=== PATIENT | female | born 1995 | race American Indian/Alaskan Native ===

== ENCOUNTER 2018-04-05 16:37 | Emergency (ER) | payer BC, OTHER ==
[2018-04-05 16:37] VITALS: BMI 29.7
[2018-04-05 17:04] VITALS: RESP 16
[2018-04-05] MEDS ORDERED: DiphenhydrAMINE 50 mg/ml Inj IVP STA (17:07)
[2018-04-05] MEDS ORDERED: Sodium Chloride 0.9% 1,000 ML IV STA (17:12)
[2018-04-05 17:41] LABS: BASO # 0.02 K/mm3 (0.0-2.0); BASO % 0.2 % (0.0-3.0); EOS # 0.2 (0.0-0.7); EOS % 1.9 % (1.5-5.0); GRAN # 7.49 (1.4-6.5); GRAN % 80.3 % (50.0-68.0); HEMOGLOBIN 8.3 g/dL (12.0-16.0); LYMPH # 1.3 (1.2-3.4); LYMPH % 13.7 % (22.0-35.0); MEAN CELL VOLUME 78.2 fl (80.0-105.0); MEAN CORPUSCULAR HEMOGLOBIN 25.1 pg (25.0-35.0); MEAN PLATELET VOLUME 8.9 fl (7.0-11.0); MONO # 0.4 (0.1-0.6); MONO % 3.9 % (1.0-6.0); RBC 3.31 10^6/uL (3.5-6.1); WHITE BLOOD COUNT 9.3 10^3/ul (4.5-11.0)
--- NOTE | 2018-04-05 17:44 | ED PDOC ---
Arrival/HPI - General Historian: Patient, Parent (mother) - History of Present Illness Time/Duration: 24 hours Symptom Onset: Gradual Symptom Course: Worsening Quality: Pressure Severity Level: 8 Activities at Onset: Rest Context: Sitting <Curtis Bond - Last Filed: 04/05/18 18:18> <Tesha Smith - Last Filed: 04/05/18 19:45> - General Chief Complaint: Headache Time Seen by Provider: 04/05/18 16:38 - History of Present Illness Narrative History of Present Illness (Text): 04/05/18 17:20 CC: Headache HPI: Ms. Benites is a 22 year old female with no significant past medical history who presents with a severe headache. Describes the headache as sharp and pressure-like that started yesterday and has worsened since. Patient reports undergoing a recent at [facility] four days ago. Patient attempted to have a natural , but episiotomy, vacuum, and pitocin was unsuccessful and patient reports an emergency was necessary. Patient underwent two epidurals. Patient reports first caused numbness and and an inability to move her toes, so patient reports a second attempt more inferior was performed and c- section was subsequently performed. Patient was discharged with Percocet 5-325 mg q6. Patient reports no bowel movements since discharge. Although urinary habits are unchanged, patient reports some bloody discharge. Patient endorses the headache is associated with fatigue, blurry vision, and dizziness. Mother shares that sister was diagnosed with ITP and Banda Syndrome within first 6 months of , but that patient has not had any coagulopathies or signs of bleeding aside from regular menstrual periods. (Curtis Bond) Past Medical History - Provider Review Nursing Documentation Reviewed: Yes - Travel History Have you recently traveled outside [place] w/in the past 3 mons?: No - Infectious Disease Hx of Infectious Diseases: None - Tetanus Immunization Tetanus Immunization: Up to Date - Past Medical History Past Medical History: No Previous - Psychiatric Hx Substance Use: No - Surgical History Hx Section: Yes - Anesthesia Hx Anesthesia: No <Curtis Bond - Last Filed: 04/05/18 18:18> Family/Social History - Physician Review Nursing Documentation Reviewed: Yes Family/Social History: Other (ITP and Banda Syndrome in Sister) Smoking Status: Never Smoked Hx Alcohol Use: No Hx Substance Use: No <Curtis Bond - Last Filed: 04/05/18 18:18> Allergies/Home Meds <Curtis Bond - Last Filed: 04/05/18 18:18> <KarenkhushiTesha ruby - Last Filed: 04/05/18 19:45> Allergies/Adverse Reactions: Allergies No Known Allergies Allergy (Verified 04/05/18 16:53) Home Medications: Home Meds Medication Instructions Recorded Confirmed oxyCODONE/Acetaminophen [Percocet 1 tab PO PRN PRN 04/05/18 04/05/18 5/325 mg Tab] Review of Systems - Review of Systems Eyes: Normal, Vision Changes, Photophobia. absent: Eye Pain ENT: absent: Hearing Changes Respiratory: Normal Cardiovascular: Normal Gastrointestinal: Normal Genitourinary Female: Hematuria, Vaginal Discharge Musculoskeletal: Normal Neurological: Headache, Dizziness <Curtis Bond - Last Filed: 04/05/18 18:18> Physical Exam Vital Signs Reviewed: Yes Temperature: Afebrile Blood Pressure: Normal Pulse: Regular Respiratory Rate: Normal Appearance: Positive for: Well-Appearing, Non-Toxic, Uncomfortable Pain Distress: Moderate Mental Status: Positive for: Alert and Oriented X 3 Finger Stick Blood Glucose: 88 - Systems Exam Head: Present: Atraumatic, Normocephalic, Tenderness (over forehead and L [employer] ). No: Contusion, Swelling, Ecchymosis Pupils: Present: PERRL Extroacular Muscles: Present: EOMI Conjunctiva: Present: Normal Mouth: Present: Moist Mucous Membranes Neck: Present: Normal Range of Motion. No: Meningeal Signs, MIDLINE TENDERNESS Respiratory/Chest: Present: Clear to Auscultation, Good Air Exchange. No: Respiratory Distress, Accessory Muscle Use, Wheezes, Decreased Breath Sounds, Rales, Retracting Abdomen: Present: Normal Bowel Sounds. No: Tenderness, Distention, Peritoneal Signs, Rebound, Guarding Upper Extremity: Present: Normal Inspection Lower Extremity: Present: Normal Inspection Neurological: Present: GCS=15, CN II-XII Intact, Speech Normal, Motor Func Grossly Intact, Normal Sensory Function Skin: Present: Warm, Dry, Normal Color Psychiatric: Present: Alert, Oriented x 3, Normal Insight, Normal Concentration <Curtis Bond - Last Filed: 04/05/18 18:18> Vital Signs Temp Pulse Resp BP Pulse Ox 04/05/18 16:42 98.4 F 80 16 129/74 99 Medical Decision Making <Curtis Bond - Last Filed: 04/05/18 18:18> <Tesha Smith - Last Filed: 04/05/18 19:45> ED Course and Treatment: 04/05/18 17:49 Impression: 22 year old female with no significant past medical history who presents four days after enduring a at [facility] and 2 epidurals with a severe headache. Plan: CBC CMP Coags UA Benadryl 50 mg IVP Toradol 30 mg IVP Reglan 10 mg IVP 04/05/18 18:16 Patient reports headache improved. Hgb 8.3, RBC 3.31. Awaiting urine. (Curtis Bond) Patient seen by resident and then evaluated by me. She reports headache that started yesterday after discharge from hospital. She reports delivery on Monday. She reports that she has not had much sleep as she has a 4 day old at home. Reports that she has not taken anything for the pain. Reports taking percocet at 8am as prescribed by director education for pain but reports that she does not like taking it because it makes her nauseous and dizzy. Denies fever, cough, dysuria, chest pain, shortness of breath, abdominal pain, weakness, numbness, tingling or vision changes. Reports that this was a gradual onset headache and is not the worst headache of her life. Spoke to patient and mother at length about possible need for blood patch and other causes of headache post . 04/05/18 17:56 Patient reports headache resolved. 04/05/18 19:30 Labs show anemia which patient reports is baseline. Alk phos mildly elevated but otherwise Ast and alt grossly normal. UA negative for protein. Leukocytes concerning for infection but negative nitrates and patient denies dysuria. She reports that she will follow-up with her director education tomorrow for repeat ua. She is requesting motrin for pain for home. She was given copies of abnormal labs. She reports headache resolved and ambulated out of ED without issue 04/05/18 19:40 (Tesha Smith) - Lab Interpretations Lab Results: 04/05/18 17:20 04/05/18 17:20 Lab Results 04/05/18 18:55: Urine Color Light yellow, Urine Appearance Slight-cloudy, Urine pH 6.5, Ur Specific [place] <= 1.005, Urine Protein Negative, Urine Glucose (UA ) Negative, Urine Ketones Trace H, Urine Blood Large H, Urine Nitrate Negative, Urine Bilirubin Negative, Urine Urobilinogen 0.2, Ur Leukocyte Esterase Moderate H, Urine RBC 25 - 30, Urine WBC 20 - 25, Ur Epithelial Cells 6 - 8, Urine Bacteria Many 04/05/18 17:20: Sodium 138, Potassium 3.8, Chloride 105, Carbon Dioxide 24, Anion Gap 13, BUN 7, Creatinine 0.7, Est GFR ( Amer) > 60, Est GFR (Non- Af Amer) > 60, Random Glucose 85, Calcium 8.8, Total Bilirubin 0.3, AST 39 H, ALT 27, Alkaline Phosphatase 159 H, Total Protein 6.4, Albumin 3.3, Globulin 3.1 , Albumin/Globulin Ratio 1.0 L 04/05/18 17:20: PT 10.6, INR 0.93, APTT 28.3 04/05/18 17:20: WBC 9.3, RBC 3.31 L, Hgb 8.3 L, Hct 25.9 L, MCV 78.2 L, MCH 25.1 , MCHC 32.0, RDW 16.0 H, Plt Count 308, MPV 8.9, Gran % 80.3 H, Lymph % (Auto) 13.7 L, [place] % (Auto) 3.9, Eos % (Auto) 1.9, Baso % (Auto) 0.2, Gran # 7.49 H, Lymph # (Auto) 1.3, [place] # (Auto) 0.4, Eos # (Auto) 0.2, Baso # (Auto) 0.02 - Medication Orders Current Medication Orders: Discontinued Medications Diphenhydramine HCl (Benadryl) 50 mg IVP STAT STA Stop: 04/05/18 17:08 Last Admin: 04/05/18 17:31 Dose: 50 mg IVP Administration Document 04/05/18 17:31 [facility] [place] (Rec: 04/05/18 17:31 [facility] [id number]) Charges for Administration # of IVP Administrations 1 Sodium Chloride (Sodium Chloride 0.9%) 1,000 mls @ 999 mls/hr IV .Q1H1M STA Stop: 04/05/18 18:12 Last Admin: 04/05/18 17:31 Dose: 999 mls/hr eMAR Start Stop Document 04/05/18 17:31 [facility] (Rec: 04/05/18 17:31 [facility] [id number]) Intravenous Solution Start Date 04/05/18 Start Time 17:31 End Date 04/05/18 End time 18:32 Total Infusion Time 61 Ketorolac Tromethamine (Toradol) 30 mg IVP STAT STA Stop: 04/05/18 17:13 Last Admin: 04/05/18 17:32 Dose: 30 mg MAR Pain Assessment Document 04/05/18 17:32 [facility] (Rec: 04/05/18 17:32 LM [id number]) Pain Reassessment Is this a pain reassessment? No Sleep Is patient sleeping during reassessment? No Presence of Pain Presence of Pain Yes Pain Scale Used Pain Scale Used Numeric Location Pain Location Body Video Game Maker Description Intensity of Pain at present 10 IVP Administration Document 04/05/18 17:32 [facility] (Rec: 04/05/18 17:32 [facility] [id number]) Charges for Administration # of IVP Administrations 1 Metoclopramide HCl (Reglan) 10 mg IVP STAT STA Stop: 04/05/18 17:08 Last Admin: 04/05/18 17:31 Dose: 10 mg IVP Administration Document 04/05/18 17:31 [facility] (Rec: 04/05/18 17:31 [facility] [id number]) Charges for Administration # of IVP Administrations 1 Disposition/Present on Arrival - Present on Arrival History of DVT/PE: No History of Uncontrolled Diabetes: No Urinary Catheter: No History of Decub. Ulcer: No History Surgical Site Infection Following: None <Curtis Bond - Last Filed: 04/05/18 18:18> - Present on Arrival Any Indicators Present on Arrival: No - Disposition Have Diagnosis and Disposition been Completed?: Yes Disposition Time: 19:32 Patient Plan: Discharge <Tesha Smith - Last Filed: 04/05/18 19:45> - Disposition Diagnosis: Anemia, Headache Disposition: HOME/ ROUTINE Patient Problems: Current Active Problems Problem Status Onset Anemia Acute Headache Acute Condition: GOOD Discharge Instructions (ExitCare): Headache, Adult Additional Instructions: Follow-up with your director education tomorrow. Motrin for headache. Return to ED if condition worsens. Follow-up for abnormal blood work. Prescriptions: Ibuprofen [Motrin] 600 mg PO Q6 PRN #30 tab PRN Reason: Pain, Mild (1-3) Forms: [employer] [facility] [employer] (Chadian)
[2018-04-05 17:50] LABS: ALBUMIN 3.3 g/dL (3.0-4.8); ALT/SGPT 27 U/L (7-56); AST/SGOT 39 U/L (14-36); BLOOD UREA NITROGEN 7 mg/dL (7-21); CALCIUM 8.8 mg/dL (8.4-10.5); GFR NON-AFRICAN AMERICAN > 60
[2018-04-05 17:51] LABS: INR 0.93; PARTIAL THROMBOPLASTIN TIME 28.3 Seconds (25.1-36.5); PROTHROMBIN TIME 10.6 SECONDS (9.4-12.5)
[2018-04-05 19:18] LABS: PH,URINE 6.5 (4.7-8.0); URINE BILIRUBIN NEGATIVE (NEGATIVE); URINE BLOOD LARGE (NEGATIVE); URINE GLUCOSE (UA) NEGATIVE (NEGATIVE); URINE LEUKOCYTE ESTERASE MODERATE Leu/uL (NEGATIVE); URINE PROTEIN NEGATIVE mg/dL (<30 mg/dL); URINE UROBILINOGEN 0.2 E.U./dL (<1 E.U./dL)
[2018-04-05 19:19] LABS: URINE APPEARANCE SLIGHT-CLOUDY (CLEAR); URINE COLOR LIGHT YELLOW (YELLOW)
[2018-04-05 19:20] LABS: URINE BACTERIA MANY (NEG); URINE RBC 25 - 30 /hpf (0-2); URINE WBC 20 - 25 /hpf (0-6)
[2018-04-05 19:43] VITALS: PULSE 77; TEMP 98.2; O2SAT 100
[2018-04-05 19:45] VITALS: BP 135/78
== END 2018-04-05 19:45 | disposition home or self-care (01) ==
LOC: ED 16:37
DX: D64.9 Anemia, unspecified (principal); R51 Headache
CPT/HCPCS: 80053; 81001; 82948; 85025; 85610; 85730; 87086; 96361; 96374; 96375; 99285; J1200; J1885; J2765; J7030

== ENCOUNTER 2018-04-08 03:05 | Emergency (ER) | payer OTHER ==
[2018-04-08 03:24] VITALS: BMI 29.6
[2018-04-08] MEDS ORDERED: Sodium Chloride 0.9% 1,000 ML IV STA (03:32)
--- NOTE | 2018-04-08 04:40 | ED PDOC ---
Arrival/HPI - General Historian: Patient - History of Present Illness Time/Duration: 1-3 hours Symptom Onset: Sudden Symptom Course: Unchanged Quality: Tightness Severity Level: 6 Activities at Onset: Rest Context: Sitting <Curtis Bond - Last Filed: 04/08/18 06:22> <Robin Bruno - Last Filed: 04/08/18 13:50> - General Chief Complaint: Shortness Of Breath Time Seen by Provider: 04/08/18 03:17 - History of Present Illness Narrative History of Present Illness (Text): 04/08/18 04:41 CC: Shortness of breath HPI: Ms. Benites is a 22 year old female with no significant past medical history who presents with shortness of breath. Patient was recently seen a few days ago for headache s/p and was told to follow up with her OBGYN and [facility] for possible blood patch. Patient states headache has resolved and refused the blood patch as she states a lot has happened over the past week. Patient says she awoke early this morning from sleep due to the shortness of breath which caused her to go outside and to coolor places for air. Nothing has helped resolve the discomfort. Patient reports undergoing a recent at [facility] a week ago. Patient attempted to have a natural , but episiotomy, vacuum, and pitocin was unsuccessful and patient reports an emergency was necessary. Patient underwent two epidurals. Patient reports first caused numbness and and an inability to move her toes, so patient reports a second attempt more inferior was performed and was subsequently performed. Patient was discharged with Percocet 5-325 mg q6. Although urinary habits are unchanged, patient reports some bloody discharge. Mother shares that sister was diagnosed with ITP and Banda Syndrome within first 6 months of , but that patient has not had any coagulopathies or signs of bleeding aside from regular menstrual periods. (Curtis Bond) Past Medical History - Provider Review Nursing Documentation Reviewed: Yes - Travel History Have you recently traveled outside [place] w/in the past 3 mons?: No - Infectious Disease Hx of Infectious Diseases: None - Tetanus Immunization Tetanus Immunization: Up to Date - Past Medical History Past Medical History: No Previous - Psychiatric Hx Substance Use: No - Surgical History Hx Section: Yes - Anesthesia Hx Anesthesia: No <Curtis Bond - Last Filed: 04/08/18 06:22> Family/Social History - Physician Review Nursing Documentation Reviewed: Yes Family/Social History: Other (Clemente's syndrome and ITP in sister) Smoking Status: Never Smoked Hx Alcohol Use: No Hx Substance Use: No <Curtis Bond - Last Filed: 04/08/18 06:22> Allergies/Home Meds <Curtis Bond - Last Filed: 04/08/18 06:22> <Robin Bruno - Last Filed: 04/08/18 13:50> Allergies/Adverse Reactions: Allergies No Known Allergies Allergy (Verified 04/08/18 03:30) Home Medications: Home Meds Medication Instructions Recorded Confirmed oxyCODONE/Acetaminophen [Percocet 1 tab PO PRN PRN 04/05/18 04/05/18 5/325 mg Tab] Review of Systems - Review of Systems Constitutional: Normal Eyes: Vision Changes ENT: absent: Hearing Changes Respiratory: SOB. absent: Cough Cardiovascular: Chest Pain Gastrointestinal: Normal. absent: Abdominal Pain Genitourinary Female: Vaginal Discharge Musculoskeletal: Normal Skin: Normal Neurological: absent: Headache, Dizziness <AshCurtis collins - Last Filed: 04/08/18 06:22> Physical Exam Vital Signs Reviewed: Yes Temperature: Afebrile Blood Pressure: Normal Pulse: Regular Respiratory Rate: Normal Appearance: Positive for: Non-Toxic, Uncomfortable Pain Distress: Mild Mental Status: Positive for: Alert and Oriented X 3 - Systems Exam Head: Present: Atraumatic, Normocephalic Pupils: Present: PERRL Extroacular Muscles: Present: EOMI Mouth: Present: Moist Mucous Membranes Neck: Present: Normal Range of Motion Respiratory/Chest: Present: Clear to Auscultation, Good Air Exchange. No: Respiratory Distress, Accessory Muscle Use, Wheezes, Decreased Breath Sounds, Rales, Retracting Cardiovascular: Present: Regular Rate and Rhythm, Normal S1, S2, Peripheal Pulses Present. No: Murmurs, Irregular Rhythm, Tachycardic Abdomen: Present: Normal Bowel Sounds. No: Tenderness, Distention, Rebound, Guarding Back: No: CVA Tenderness, Midline Tenderness, Paraspinal Tenderness Upper Extremity: Present: Normal Inspection Skin: Present: Warm, Dry, Normal Color. No: Diaphoretic, Pale <Curtis Bond - Last Filed: 04/08/18 06:22> Vital Signs Temp Pulse Resp BP Pulse Ox 04/08/18 10:30 98.2 F 62 18 146/82 100 04/08/18 09:02 64 18 146/82 100 04/08/18 08:00 55 L 18 139/70 100 04/08/18 06:57 63 18 146/84 99 04/08/18 03:15 97.5 F L 58 L 20 153/74 H 100 04/08/18 03:10 19 100 Medical Decision Making <Curtis Bond - Last Filed: 04/08/18 06:22> - Transfer of Care Patient signed out to Dr:: gwen f/u vq and dispo <Robin Bruno - Last Filed: 04/08/18 13:50> ED Course and Treatment: 04/08/18 04:06 Impression: 22 female 1 week s/p who presents with shortness of breath. Plan: CTA CTA CBC CMP EKG, Trop UA 04/08/18 04:18 Patient has refused CTA because family member told her to not undergo an imaging study with contrast. V/Q scan ordered but radioisotope is not available until 7 AM. Pulm Embolism less likely as EKG shows NSR @62 bpm without tachycardia. D-dimer would be elevated due to recent hypercoagulable state so will not order at this time. 04/08/18 05:02 UA + for protein and leukocyte esterase. No dysuria but does report some frequency and hesitancy. Started patient on Keflex 500 BID, beginning a 7 day course for UTI therapy. 04/08/18 06:23 Awaiting V/Q scan to rule out pulm embolism, to be done at earliest 7 am. ( Curtis Bond) 04/08/18 05:35 Jennifer Benites is a 22 year old female who presents to the emergency department for further evaluation of shortness of breath. In agreement with resident note, which includes further HPI details. Patient was seen and evaluated with resident, came up with plan and treatment together. (Robin Bruno) - Lab Interpretations Lab Results: 04/08/18 04:00 04/08/18 04:00 Lab Results 04/08/18 04:30: Troponin I < 0.01 04/08/18 04:30: Urine Color Yellow, Urine Appearance Clear, Urine pH 6.0, Ur Specific [place] <= 1.005, Urine Protein 30 H, Urine Glucose (UA) Negative, Urine Ketones Negative, Urine Blood Large H, Urine Nitrate Negative, Urine Bilirubin Negative, Urine Urobilinogen 0.2, Ur Leukocyte Esterase Moderate H, Urine RBC 25 - 30, Urine WBC 5 - 10, Ur Epithelial Cells Many 04/08/18 04:00: Sodium 139, Potassium 3.7, Chloride 109 H, Carbon Dioxide 22, Anion Gap 12, BUN 10, Creatinine 0.8, Est GFR ( Amer) > 60, Est GFR (Non- Af Amer) > 60, Random Glucose 96, Calcium 8.6, Total Bilirubin 0.2, AST 38 H, ALT 33, Alkaline Phosphatase 145 H, Total Protein 6.4, Albumin 3.3, Globulin 3.1 , Albumin/Globulin Ratio 1.1 04/08/18 04:00: WBC 8.3, RBC 3.05 L, Hgb 7.8 L, Hct 24.0 L, MCV 78.7 L, MCH 25.6 , MCHC 32.5, RDW 16.2 H, Plt Count 313, MPV 9.4, Gran % 76.2 H, Lymph % (Auto) 15.8 L, [place] % (Auto) 5.8, Eos % (Auto) 1.8, Baso % (Auto) 0.4, Gran # 6.29, Lymph # (Auto) 1.3, [place] # (Auto) 0.5, Eos # (Auto) 0.2, Baso # (Auto) 0.03 - RAD Interpretation Radiology Orders: 04/08/18 03:51 LUNG PERF & VENT SCAN [NM] Stat - Medication Orders Current Medication Orders: Discontinued Medications Cephalexin Monohydrate (Keflex) 500 mg PO BID STA PRN Reason: Protocol Stop: 04/08/18 06:02 Last Admin: 04/08/18 06:38 Dose: 500 mg Sodium Chloride (Sodium Chloride 0.9%) 1,000 mls @ 999 mls/hr IV .Q1H1M STA Stop: 04/08/18 04:32 Last Admin: 04/08/18 04:00 Dose: 999 mls/hr eMAR Start Stop Document 09/16/18 04:00 RD (Rec: 04/08/18 04:20 RD [id number]) Intravenous Solution Start Date 04/08/18 Start Time 04:00 End Date 04/08/18 End time 05:00 Total Infusion Time 60 <Curtis Bond - Last Filed: 04/08/18 06:22> - PA / MANAGER SOCIAL RESPONSIBILITY / Resident Statement MD/DO has reviewed & agrees with the documentation as recorded. MD/DO has examined the patient and agrees with the treatment plan. - Scribe Statement The provider has reviewed the documentation as recorded by the Scribe <Robin Bruno - Last Filed: 04/08/18 13:50> - Scribe Statement Bibiana Lizarraga Provider Scribe Attestation: All medical record entries made by the Scribe were at my direction and personally dictated by me. I have reviewed the chart and agree that the record accurately reflects my personal performance of the history, physical exam, medical decision making, and the department course for this patient. I have also personally directed, reviewed, and agree with the discharge instructions and disposition. (Robin Bruno) Disposition/Present on Arrival - Present on Arrival Any Indicators Present on Arrival: No History of DVT/PE: No History of Uncontrolled Diabetes: No Urinary Catheter: No History of Decub. Ulcer: No History Surgical Site Infection Following: None - Disposition Have Diagnosis and Disposition been Completed?: No Disposition Time: 06:26 <Curtis Bond - Last Filed: 04/08/18 06:22> - Present on Arrival History of DVT/PE: No - Disposition Have Diagnosis and Disposition been Completed?: Yes <Robin Bruno - Last Filed: 04/08/18 13:50> - Disposition Diagnosis: Unknown cause of injury, Dyspnea, unspecified, UTI (urinary tract infection) Disposition: HOME/ ROUTINE Condition: FAIR Discharge Instructions (ExitCare): Urinary Tract Infection, Adult (DC), Shortness of Breath (Dyspnea) (DC) Additional Instructions: Jennifer- Sorry that you were feeling so short of breath earlier. All of your tests here today are good, including the lung scan. Please follow up with your regular doctors and return to us if worse, new symptoms occur or your shortness of breath returns. You do have a urinary tract infection and will need to take kelfex twice a day for seven days. Best- Dr. German Rinaldi Prescriptions: Cephalexin [Keflex] 500 mg PO BID #14 capsule Referrals: [id number] [Other] - Follow up with primary Forms: [email or web address] (Belarusian)
[2018-04-08 04:56] LABS: BASO # 0.03 K/mm3 (0.0-2.0); BASO % 0.4 % (0.0-3.0); EOS # 0.2 (0.0-0.7); EOS % 1.8 % (1.5-5.0); GRAN # 6.29 (1.4-6.5); GRAN % 76.2 % (50.0-68.0); HEMOGLOBIN 7.8 g/dL (12.0-16.0); LYMPH # 1.3 (1.2-3.4); LYMPH % 15.8 % (22.0-35.0); MEAN CELL VOLUME 78.7 fl (80.0-105.0); MEAN CORPUSCULAR HEMOGLOBIN 25.6 pg (25.0-35.0); MEAN CORPUSCULAR HGB CONC 32.5 g/dl (31.0-37.0); MEAN PLATELET VOLUME 9.4 fl (7.0-11.0); MONO # 0.5 (0.1-0.6); MONO % 5.8 % (1.0-6.0); RBC 3.05 10^6/uL (3.5-6.1); RED CELL DISTRIBUTION WIDTH 16.2 % (11.5-14.5); WHITE BLOOD COUNT 8.3 10^3/ul (4.5-11.0)
[2018-04-08 04:57] LABS: URINE BILIRUBIN NEGATIVE (NEGATIVE); URINE BLOOD LARGE (NEGATIVE); URINE GLUCOSE (UA) NEGATIVE (NEGATIVE); URINE LEUKOCYTE ESTERASE MODERATE Leu/uL (NEGATIVE); URINE PROTEIN 30 mg/dL (<30 mg/dL); URINE UROBILINOGEN 0.2 E.U./dL (<1 E.U./dL)
[2018-04-08 05:02] LABS: URINE APPEARANCE CLEAR (CLEAR); URINE COLOR YELLOW (YELLOW)
[2018-04-08 05:15] LABS: URINE EPITHELIAL CELLS MANY /hpf (0-5); URINE RBC 25 - 30 /hpf (0-2)
[2018-04-08 06:59] VITALS: RESP 18
[2018-04-08 06:59] LABS: ALB/GLOB RATIO 1.1 (1.1-1.8); ALBUMIN 3.3 g/dL (3.0-4.8); ALT/SGPT 33 U/L (7-56); AST/SGOT 38 U/L (14-36); BLOOD UREA NITROGEN 10 mg/dL (7-21); CALCIUM 8.6 mg/dL (8.4-10.5); GFR NON-AFRICAN AMERICAN > 60
--- NOTE | 2018-04-08 07:14 | ED PDOC ---
Physical Exam Vital Signs Temp Pulse Resp BP Pulse Ox 04/08/18 09:02 64 18 146/82 100 04/08/18 08:00 55 L 18 139/70 100 04/08/18 06:57 63 18 146/84 99 04/08/18 03:15 97.5 F L 58 L 20 153/74 H 100 04/08/18 03:10 19 100 Medical Decision Making ED Course and Treatment: 04/08/18 07:10 Case endorsed to me by Dr. Loja, pending labs and disposition. 22 year old female presents to the Emergency department complaining of shortness of breath. - Lab Interpretations Lab Results: 04/08/18 04:00 04/08/18 04:00 Lab Results 04/08/18 04:30: Troponin I < 0.01 04/08/18 04:30: Urine Color Yellow, Urine Appearance Clear, Urine pH 6.0, Ur Specific [place] <= 1.005, Urine Protein 30 H, Urine Glucose (UA) Negative, Urine Ketones Negative, Urine Blood Large H, Urine Nitrate Negative, Urine Bilirubin Negative, Urine Urobilinogen 0.2, Ur Leukocyte Esterase Moderate H, Urine RBC 25 - 30, Urine WBC 5 - 10, Ur Epithelial Cells Many 04/08/18 04:00: Sodium 139, Potassium 3.7, Chloride 109 H, Carbon Dioxide 22, Anion Gap 12, BUN 10, Creatinine 0.8, Est GFR ( Amer) > 60, Est GFR (Non- Af Amer) > 60, Random Glucose 96, Calcium 8.6, Total Bilirubin 0.2, AST 38 H, ALT 33, Alkaline Phosphatase 145 H, Total Protein 6.4, Albumin 3.3, Globulin 3.1 , Albumin/Globulin Ratio 1.1 04/08/18 04:00: WBC 8.3, RBC 3.05 L, Hgb 7.8 L, Hct 24.0 L, MCV 78.7 L, MCH 25.6 , MCHC 32.5, RDW 16.2 H, Plt Count 313, MPV 9.4, Gran % 76.2 H, Lymph % (Auto) 15.8 L, [place] % (Auto) 5.8, Eos % (Auto) 1.8, Baso % (Auto) 0.4, Gran # 6.29, Lymph # (Auto) 1.3, [place] # (Auto) 0.5, Eos # (Auto) 0.2, Baso # (Auto) 0.03 - RAD Interpretation Radiology Orders: 04/08/18 03:51 LUNG PERF & VENT SCAN [NM] Stat - Medication Orders Current Medication Orders: Discontinued Medications Cephalexin Monohydrate (Keflex) 500 mg PO BID STA PRN Reason: Protocol Stop: 04/08/18 06:02 Last Admin: 04/08/18 06:38 Dose: 500 mg Sodium Chloride (Sodium Chloride 0.9%) 1,000 mls @ 999 mls/hr IV .Q1H1M STA Stop: 04/08/18 04:32 Last Admin: 04/08/18 04:00 Dose: 999 mls/hr eMAR Start Stop Document 04/08/18 04:00 RD (Rec: 04/08/18 04:20 RD [id number]) Intravenous Solution Start Date 04/08/18 Start Time 04:00 End Date 04/08/18 End time 05:00 Total Infusion Time 60 - Scribe Statement The provider has reviewed the documentation as recorded by the Scribvickie Griffith All medical record entries made by the Scribvickie were at my direction and personally dictated by me. I have reviewed the chart and agree that the record accurately reflects my personal performance of the history, physical exam, medical decision making, and the department course for this patient. I have also personally directed, reviewed, and agree with the discharge instructions and disposition. Disposition/Present on Arrival - Present on Arrival Any Indicators Present on Arrival: No History of DVT/PE: No History of Uncontrolled Diabetes: No Urinary Catheter: No History of Decub. Ulcer: No History Surgical Site Infection Following: None - Disposition Have Diagnosis and Disposition been Completed?: Yes Diagnosis: Unknown cause of injury, Dyspnea, unspecified, UTI (urinary tract infection) Disposition: HOME/ ROUTINE Disposition Time: 10:09 Patient Plan: Discharge Condition: FAIR Discharge Instructions (ExitCare): Urinary Tract Infection, Adult (DC), Shortness of Breath (Dyspnea) (DC) Additional Instructions: Dipika Estrada that you were feeling so short of breath earlier. All of your tests here today are good, including the lung scan. Please follow up with your regular doctors and return to us if worse, new symptoms occur or your shortness of breath returns. You do have a urinary tract infection and will need to take kelfex twice a day for seven days. Best- Dr. German Rinaldi Prescriptions: Cephalexin [Keflex] 500 mg PO BID #14 capsule Referrals: [id number] [Other] - Follow up with primary Forms: [email or web address] ([place])
[2018-04-08 08:23] VITALS: O2SAT 100
[2018-04-08 09:03] VITALS: BP 146/82
--- NOTE | 2018-04-08 09:58 | NM ---
Date of service: 04/08/2018 COMPARISON: TECHNIQUE: 33.0 mCi technetium 99-m DTPA aerosol. 3.3 mCI technetium 99-m MAA administered intravenously. FINDINGS: VENTILATION COMPONENT: Normal. PERFUSION COMPONENT: Normal. IMPRESSION: Lowprobability ventilation perfusion scan for pulmonary embolism.
[2018-04-08 10:48] VITALS: PULSE 62; TEMP 98.2
--- NOTE | 2018-04-08 12:07 | CARD ---
APPROVED REPORT Date of service: 04/08/2018 EKG Measurement Heart [id number] <Conclusion> Normal sinus rhythm Normal ECG
== END 2018-04-08 10:30 | disposition home or self-care (01) ==
LOC: ED 03:05
DX: R06.00 Dyspnea, unspecified (principal); N39.0 Urinary tract infection, site not specified
CPT/HCPCS: 78582; 80053; 81001; 84484; 85025; 87086; 93005; 96360; 99284; J7030